=== PATIENT | male | born 1950 | race Caucasian/White ===

== ENCOUNTER 2020-04-17 09:55 | Outpatient (REF) | payer MEDICARE, BC, SELFPAY ==
[2020-04-17 12:19] LABS: Prostate Specific Antigen < 0.05 ng/mL (<0.05-4.0)
== END 2020-04-17 09:56 | disposition home or self-care (01) ==
LOC: HO.LAB 09:55
PROVIDERS: PCP Internal Medicine; Visit Provider Physician Assistant
DX: Z12.5 Encounter for screening for malignant neoplasm of prostate (principal); C61 Malignant neoplasm of prostate
CPT/HCPCS: 84153

== ENCOUNTER 2020-04-26 07:43 | Outpatient (REF) | payer MEDICARE, BC, SELFPAY ==
[2020-04-26 11:10] LABS: MANUAL DIFF FLAG NO
[2020-04-26 11:33] LABS: Basophils Percent Auto 0.3 % (0-2); Eosinophils Absolute Auto 0.4 X10*3/uL (0.0-0.4); Eosinophils Percent Auto 6.9 % (0-4); Hematocrit 43.6 % (42-52); Hemoglobin 14.7 g/dl (14.0-18.0); Imm Gran Abs Auto 0.01 X10*3/uL (0.00-0.03); Imm Gran Pct Auto 0.2 % (0.0-0.4); Lymphocytes Absolute Auto 1.6 X10*3/uL (1.2-4.9); Mean Corpuscular HGB Conc 33.7 g/dl (31.0-36.0); Mean Corpuscular Volume 94.8 fL (80-98); Mean Platelet Volume 9.7 fL (9.4-12.4); Monocytes Absolute Auto 0.8 X10*3/uL (0.1-1.2); Neutrophils Percent Auto 51.6 % (45-73); Platelet Count 291 X10*3/uL (160-400); Red Cell Distribution Width 11.7 % (11.0-16.0); White Blood Count 5.8 X10*3/uL (4.8-10.8)
[2020-04-26 11:46] LABS: Estimated Average Glucose 114 mg/dL; Hemoglobin A1c % 5.6 %
[2020-04-26 11:51] LABS: Glucose Urine UA NEG (NEG); Leukocyte Esterase Urine NEG (NEG); Nitrite Urine NEG (NEG); Urine Blood NEG (NEG); Urine Ketones NEG (NEG); Urine Protein NEG (NEG-TRACE)
[2020-04-26 11:57] LABS: Appearance Urine CLEAR; Color Urine YELLOW
[2020-04-26 12:01] LABS: Alanine Aminotransferase 23 U/L (0-40); Albumin Level 4.4 g/dL (3.5-5.0); Alkaline Phosphatase 58 U/L (39-117); Anion Gap 13 (12-20); Aspartate Amino Transferase 27 U/L (5-37); Bilirubin Total 0.9 mg/dL (0.0-1.0); Blood Urea Nitrogen 19 mg/dL (9-16); Calcium 8.8 mg/dL (8.4-10.2); Carbon Dioxide 29 mmol/L (22-29); Chloride 103 mmol/L (96-108); Cholesterol 208 mg/dL; Estimated Glomerular Filt Rate > 60; Glucose Fasting 109 mg/dL (60-99); HDL Cholesterol 83 mg/dL; LDL Cholesterol Calculated 117 mg/dl; Potassium 4.4 mmol/l (3.3-5.1); Sodium 141 mmol/L (135-145); Total Protein 6.8 g/dL (6.5-8.0); Triglycerides 41 mg/dL
== END 2020-04-26 07:44 | disposition home or self-care (01) ==
LOC: HO.HMGCLDS 07:43
PROVIDERS: PCP Internal Medicine; Visit Provider Internal Medicine
DX: E78.00 Pure hypercholesterolemia, unspecified (principal); I10 Essential (primary) hypertension
CPT/HCPCS: 36415; 80053; 80061; 81003; 83036; 85025

== ENCOUNTER → 2020-08-11 10:06 | Outpatient (REF) | payer MEDICARE, BC, SELFPAY ==
--- NOTE | 2020-08-11 10:30 | CA_ITS ---
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 The visually estimated ejection fraction is between 50-55%. - Normal right ventricular cavity size and systolic function. - There is trace (trivial) aortic valve regurgitation. Findings Left Ventricle Normal left ventricular cavity size. There is normal left ventricular wall thickness. The left ventricular systolic function is low normal. The visually estimated ejection fraction is between 50-55%. There is no evidence of regional wall motion abnormalities. Diastolic function is normal for age. Right Ventricle Normal right ventricular cavity size and systolic function. Atria Both atria are normal in size. Aortic Valve There is a normal trileaflet aortic valve. There is mild thickening of the aortic valve. There is no aortic valve stenosis. There is trace (trivial) aortic valve regurgitation. Mitral Valve Normal mitral valve structure and function. There is trace mitral valve regurgitation. There is no mitral valve stenosis. Pulmonic Valve The pulmonic valve is likely normal. Tricuspid Valve Normal tricuspid valve structure and function. There is trace tricuspid valve regurgitation. Normal right atrial pressure. There is no evidence of pulmonary hypertension. Great Vessels All visible segments of the aorta are normal in size. The visualized portions of the pulmonary artery and branches are normal. Venous The inferior vena cava is normal in size and collapses greater than 50% with inspiration. Pericardium/Pleural There is no evidence of pericardial effusion. Prior Study Comparison No significant change compared to prior study dated: 05/05/2018. Measurements M-Mode Liner Measurements Normals - Women/Men AOV Cusps: 2.30 1.5-2.6 cm/m2 2D Linear Measurements IVSd: 0.97 0.6-0.9/0.6-1.0 cm LVIDd: 5.26 3.9-5.3/4.2-5.9 cm LVIDd Index: 2.62 2.4-3.2/2.2-3.1 cm/m2 LVIDs: 2.63 2.0-3.6 cm LVPWd: 0.98 0.7-1.1 cm Ao Root: 3.20 2.1-3.5 cm LA Diam: 3.90 2.7-3.8/3.0-4.0 cm LAIDs Index: 1.94 1.5-2.3 cm/m2 LV Mass: 238.28 67-162/88-224 g LV Mass Index: 118.55 43-95/49-115 g/m2 LVOT Diam: 2.30 3.0+(-)1.3 cm 2D Systolic Function EF 4C: 54.30 >55% EF 2C: 58.10 >55% EF BiP: 56.60 >55% Mitral Valve MV Pk E: 0.66 MV PK A: 0.63 MV Decel Time: 222.00 E/A: 1.00 E'Lateral: 11.90 E'Medial: 5.44 E/E' Med: 12.00 E/E' Lat: 5.50 PHT: 65.00 MVA PHT: 3.38 Decel [place]: 2.95 Aortic Valve AoV Pk Rickie: 1.26 AoV Pk Grad: 6.00 AI Pk Rickie: 4.42 AI [place]: 1.29 LVOT LVOT Pk Rickie: 0.53 LVOT Mn Rickie: 0.39 LVOT VTI: 0.12 LVOT Pk Grad: 1.00 LVOT Mn Grad: 1.00 LVOT Diam: 2.30 LVOT Area: 4.15 Diastolic Function MV Pk E: 0.66 MV Pk A: 0.63 E/A: 1.00 E'Medial: 5.44 E/E' Med: 12.00 E' Laterial: 11.90 E/E' Lat: 5.50 Tricuspid Valve TR Pk Rickie: 2.10 TR Pk Grad: 18.00 RA Press: 3.00 RVSP: 21.00 Great Vessels Aorta Ao Root-2D: 3.20 2.0-3.7 cm Ao Asc: 3.20 2.1-3.4 cm Ao Arch: 3.00 Pulmonary Valve PV Pk Rickie: 0.95 Peak PV Grad: 4.00 Updated in Other Vendor System with Status of Final Farooq Her MD electronically signed on 08/13/2020 2:08:20 PM with status of Final
== END ==
LOC: HO.CARD 10:06
PROVIDERS: Visit Provider Internal Medicine
DX: I49.1 Atrial premature depolarization (principal); I10 Essential (primary) hypertension; G47.33 Obstructive sleep apnea (adult) (pediatric); Z99.89 Dependence on other enabling machines and devices
CPT/HCPCS: 93306

== ENCOUNTER → 2020-08-24 12:18 | Outpatient (BNVA) | payer MEDICARE, BC, SELFPAY | PROVIDERS: PCP Internal Medicine; Visit Provider Internal Medicine | DX: I49.1 Atrial premature depolarization (principal); I10 Essential (primary) hypertension; G47.33 Obstructive sleep apnea (adult) (pediatric); Z99.89 Dependence on other enabling machines and devices | CPT/HCPCS: 93005; 99212 ==